=== PATIENT | female | born 1940 | race Caucasian/White ===

== ENCOUNTER 2016-11-20 13:58 | Outpatient (CLI) | payer MEDICARE | END 2016-11-20 14:16 | LOC: D.MAMMO 13:58 | DX: Z12.31 Encounter for screening mammogram for malignant neoplasm of breast (principal) ==

== ENCOUNTER → 2017-12-14 18:24 | Outpatient (CLI) | payer MEDICARE ==
[~2017-12-14 18:24] MED LIST: ATIVAN0.5 MG PO; LISINOPRIL10 MG PO; PLAVIX75 MG PO; VITAMIN D5000 UNIT PO
== END | disposition home or self-care (01) ==
LOC: D.LABREF 18:24
DX: N39.0 Urinary tract infection, site not specified (principal)

== ENCOUNTER → 2017-12-22 12:15 | Outpatient (CLI) | payer MEDICARE | END | disposition home or self-care (01) | LOC: D.LABREF 12:15 | DX: N39.0 Urinary tract infection, site not specified (principal) ==

== ENCOUNTER 2018-01-12 07:12 | Outpatient (CLI) | payer MEDICARE ==
[~2018-01-12] VITALS: Ht 165.1 cm; Wt 81.8 kg
--- NOTE | ~2018-01-12 | OP ---
PATIENT NAME: STANISLAV FLORES MEDICAL RECORD: [id number] :42 LOCATION:D.CAT ADMISSION DATE: SURGEON: MAXWELL BLACK MD DATE OF OPERATION: 01/12/2018 PROCEDURES: 1. PTCA stent LAD. 2. Left heart catheterization. 3. Selective coronary angiography. 4. Left ventriculogram. PROCEDURE IN DETAIL: After informed consent was obtained and after a detailed description of risks, benefits as well as alternative therapies, the patient elected to proceed with angiogram and angioplasty. The right radial area was prepped and draped in normal sterile fashion. Right radial artery was cannulated via modified Seldinger technique with placement of 6-Serbian sheath. All catheters exchanged through this sheath. FINDINGS: The left ventriculogram was performed in standard 30-degree PHILLIPS view, reveals good cardiac wall motion throughout all segments. Overall ejection fraction estimated 60%. SELECTIVE CORONARY ANGIOGRAPHY: 1. Left main is with no significant angiographic disease. 2. Left anterior descending has 80% stenosis in the mid distal vessel. 3. Left circumflex has moderate irregularities, but no flow-limiting stenosis. 4. Right coronary artery has moderate irregularities, but no flow-limiting stenosis. RECONCILING CLERK STENT OF THE LAD: The stent used was a 2.0 x 12 mm [place] taken to 15 atmospheres. Result was 0% residual stenosis. OVERALL IMPRESSION: Successful PTCA stent of the LAD going from 80% initial stenosis to 0% residual. TRANSINT:[id number] Voice Confirmation ID: [id number] DOCUMENT ID: [id number] MAXWELL BLACK MD at 1752 CC: [id number] DICTATION DATE: 01/12/18 1016 SLAB PULLER: 01/12/[address] [facility] CLI 01/12/18 [id number] [place] [address]
--- NOTE | ~2018-01-12 | HEMODYNAMI ---
PATIENT:STANISLAV FLORES MEDICAL RECORD: [id number] : 42 LOCATION:DKRZYS[facility]TOF ADMISSION DATE: 01/12/18 Generatedon:01/12/20189:51 Patient name: STANISLAV FLORES Patient #: [id number] SSN: : 1940 Date of study: 01/12/2018 Page: Of Hemodynamic Procedure Report Patient Data Patient Demographics Procedure consent was obtained First Name: STANISLAV Gender: Female Last Name: MARK : 1940 [facility] Initial: J Age: 77 year(s) Patient #: [id number] Race: Unknown Additional ID: [id number] Contact details [address]: [address] [place] [address] State: [place] City: [place] Zip code: [address] Past Medical History Allergies: No known allergies Admission Admission Data Admission Date: 01/12/2018 Admission Time: 7:12 Admit Source: Other Procedure Procedure Types Cath Procedure Diagnostic Procedure LHC LHC w/Coronaries PCI Procedure Coronary Stent Coronary Stent Initial Procedure Description Procedure Date Procedure Date: 01/12/2018 Procedure Start Time: 9:32 Procedure End Time: 9:49 Procedure Staff Name Function Lyle Juarez RT Monitor Sharron Bolanos RT Scrub Alec Alexandra RN Nurse Abdon Scanlon MD Performing Physician Procedure Data Cath Procedure Fluoroscopy Diagnostic fluoroscopy Total fluoroscopy Time: 5 time: 5 min min Diagnostic fluoroscopy Total fluoroscopy dose: 398 dose: 398 mGy mGy Contrast Material Contrast Material Type Amount (ml) Isovue 300 61 Entry Location Entry Primary Successful Side Size Upsize Upsize Entry Closure Lee ccessful Closure Location (Fr) 1 (Fr) 2 (Fr) Remarks Device Remarks Radial Right 6 Fr Mechanical artery Short Compression Estimated blood loss: 10 ml Diagnostic catheters Device Type Used For End Catheter Placement DIAGNOSTIC Monroe 110cm 5 Procedure Fr catheter ([id number]) Procedure Complications No complications Procedure Medications Medication Administration Route Dosage 0.9% NaCl I.V. 100 ml/hr Oxygen etCO2 Nasal cannula 2 l/min Heparin Flush Bag added to field 2 bags (1000units/500ml NS) Lidocaine 2% added to field 20 Radial Cocktail added to field 1 syringe (Verapomil 2mg/Nitro 400mcg/Heparin 1500units) Versed I.V. 1 mg Fentanyl I.V. 25 mcg Radial Cocktail I.A. 1 syringe (Verapomil 2mg/Nitro 400mcg/Heparin 1500units) Heparin Bolus I.V. 4000 units Integrilin (Bolus I.V. 7.3 ml 2mg/ml) Integrilin (Bolus wasted 2.7 ml 2mg/ml) Plavix P.O. 600 mg Hemodynamics Rest Heart Rate: 64 (bpm) Pressure Samples Time Site Value (mmHg) Purpose Heart Use Rate(bpm) 9:35 LV 58/14,16 Snapshot 70 Snapshots Pre Cath Intra NCS Post Cath Vital Signs Time Heart Resp SPO2 etCO2 NIBP (mmHg) Rhythm Pain Sedation Rate (ipm) (%) (mmHg) Status Level (bpm) 9:19:19 64 18 98 0 173/71(136) NSR 0 (11) 10(A) , No pain 9:24:20 63 19 100 35.2 179/76(125) NSR 0 (11) 10(A) , No pain 9:29:15 63 16 100 30.7 148/73(103) NSR 0 (11) 10(A) , No pain 9:34:03 72 20 98 38.2 134/62(100) NSR 0 (11) 9(A) , No pain 9:38:52 76 16 98 38.2 119/55(91) NSR 0 (11) 9(A) , No pain 9:43:39 79 20 98 35.9 127/59(106) NSR 0 (11) 10(A) , No pain 9:48:26 71 23 99 35.2 131/70(107) NSR 0 (11) 10(A) , No pain Medications Time Medication Route Dose Verified Delivered Reason Note s Effectiveness by by 9:24:10 0.9% NaCl I.V. 100 Alec Alec Per physician ml/hr Nasrin Alexandra RN RN 9:24:22 Oxygen etCO2 2 l/min Alec Alec Per physician Nasal Nasrin Alexandra cannula RN RN 9:25:11 Heparin Flush added 2 bags Alec Alec used for Bag to Lorigan Lorigan procedure (1000units/500ml field RN RN NS) 9:25:27 Lidocaine 2% added 20ml Alec Alec for local to vial Lorigan Nasrin anesthetic field RN RN 9:25:37 Radial Cocktail added 1 Alec Alec used for (Verapomil to syringe Lorflorencia Alexandra procedure 2mg/Nitro field RN RN 400mcg/Heparin 1500units) 9:31:28 Versed I.V. 1 mg Alec Alec for sedation Nasrin Alexandra RN RN 9:31:38 Fentanyl I.V. 25 mcg Alec Alec for sedation Nasrin Alexandra RN RN 9:34:26 Radial Cocktail I.A. 1 Alec Abdon for (Verapomil syringe Nasrin Tauth MD vasodilation 2mg/Nitro RN 400mcg/Heparin 1500units) 9:40:03 Heparin Bolus I.V. 4000 Alec Alec for units Nasrin Alexandra anticoagulation RN RN 9:40:19 Integrilin I.V. 7.3 ml Alec Alec for (Bolus 2mg/ml) Nasrin Alexandra antiplatelet RN RN therapy 9:40:31 Integrilin wasted 2.7 ml Alec Alec to sharp's (Bolus 2mg/ml) Nasrin Alexandra RN RN 9:45:05 Plavix P.O. 600 mg Alec Alec for Nasrin Alexandra antiplatelet RN RN therapy Procedure Log Time Note 9:09:06 Informed consent obtained and on chart 9:09:09 Admit Source: Other 9:09:59 Diagnostic Cath status Elective 9:10:01 Sharron Bolanos RT(R) sent for patient. Start room use. 9:10:01 Time tracking: Regular hours (M-F 7:00 - 5:00) 9:10:05 Plan of Care:Hemodynamics will remain stable., Cardiac rhythm will remain stable., Comfort level will be maintained., Respiratory function will remain adequate., Patient/ family verbilizes understanding of procedure., Procedure tolerated without complication., Recovers from procedure without complications.. 9:14:06 Patient received from Pre/Post Procedure Room to CCL 1 Alert and oriented. Tansferred to table in Supine position. 9:14:07 Warm blankets applied, and radha hugger turned on for patient comfort. 9:14:08 Correct patient and procedure confirmed by team. 9:14:08 ECG and BP/O2 sat monitors applied to patient. 9:14:10 Pre-procedure instructions explained to patient. 9:14:10 Pre-op teaching completed and patient verbalized understanding. 9:14:19 H&P Date Dictated: 12/15/2017 Within 30 days and on chart., H&P Addendum completed by physician on day of procedure. (MUST COMPLETE FOR ALL OUTPATIENTS). 9:18:06 Vital chart was started 9:24:10 0.9% NaCl 100 ml/hr I.V. was administered by Alec Alexandra RN; Per physician; 9:24:22 Oxygen 2 l/min etCO2 Nasal cannula was administered by Alec Alexandra RN; Per physician; 9:25:11 Heparin Flush Bag (1000units/500ml NS) 2 bags added to field was administered by Alec Alexandra RN; used for procedure; 9:25:27 Lidocaine 2% 20ml vial added to field was administered by Alec Alexandra RN; for local anesthetic; 9:25:37 Radial Cocktail (Verapomil 2mg/Nitro 400mcg/Heparin 1500units) 1 syringe added to field was administered by Alec Alexandra RN; used for procedure; 9:28:46 Zero performed for pressure channel P1 9:29:04 Baseline sample Acquired. 9:29:09 Rhythm: sinus rhythm 9:29:11 Full Disclosure recording started 9:29:16 Family in waiting room. 9:29:17 Patient NPO since Midnight. 9:29:23 Patient allergic to No known allergies 9:29:24 Is the patient allergic to Iodine/contrast media? No. 9:29:28 Is patient on blood thinner?No 9:29:30 Patient diabetic? No. 9:29:32 Previous problem with sedation/anesthesia? No ? 9:29:34 Snore? No 9:29:34 Sleep apnea? No 9:29:35 Deviated septum? No 9:29:36 Opens mouth fully? Yes 9:29:37 Sticks out tongue? Yes 9:29:38 Airway obstruction? No ? 9:29:40 Dentures? No ? 9:29:44 Modified Alexi's test Ulnar < 7 seconds 9:29:46 Patient pain scale 0/10 ?. 9:29:51 IV patent on arrival in left forearm with 0.9% NaCl at [facility]. 9:29:53 Lab results completed and on chart. 9:30:30 Right Radial & Right Groin area was prepped with chlora-prep and draped in sterile fashion 9:30:31 Alarms reviewed by RPooja N. 9:30:32 Sharps counted by scrub and verified by R.N. 9:30:42 Physician arrived 9:30:42 --------ALL STOP TIME OUT------ 9:30:43 Final Timeout: patient, procedure, and site verified with staff and physician. All members of the team are in agreement. 9:30:44 Right Radial & Right Groin site verified by team. 9:30:49 Physical assessment completed. ASA score P 2 - A patient with mild systemic disease as per Abdon Scanlon MD. 9:30:54 Sedation plan: IV Moderate Sedation Medication:Versed, Fentanyl 9:31:00 Use device set Radial Dx or PCI 9:31:01 ACIST Syringe (32261) opened to sterile field. 9:31:01 Medline Cath Pack ([id number]) opened to sterile field. 9:31:02 Bag Decanter (2002S) opened to sterile field. 9:31:02 ACIST Hand Control (99255) opened to sterile field. 9:31:03 ACIST Manifold (08027) opened to sterile field. 9:31:04 Tegaderm 4 x 4 (1626W) opened to sterile field. 9:31:04 MBrace Wrist Support ([id number]) opened to sterile field. 9:31:06 SHEATH 6Fr Prelude Radial ([id number]) opened to sterile field. 9:31:06 DIAGNOSTIC WIRE .035 260cm J wire (866808) opened to sterile field. 9:31:28 Versed 1 mg I.V. was administered by Alec Alexandra RN; for sedation; 9:31:38 Fentanyl 25 mcg I.V. was administered by Alec Alexandra RN; for sedation; 9:32:01 Zero performed for pressure channel P1 9:32:10 Procedure started. 9:32:17 Local anesthetic to right radial artery with Lidocaine 2% by Abdon Scanlon MD.INITIAL ACCESS ONLY 9:32:23 A 6 Fr Short sheath was inserted into the Right Radial artery 9:32:34 A DIAGNOSTIC Monroe 110cm 5 Fr catheter (711160) was advanced over the wire and used for Procedure. 9:34:25 GLIDE WIRE ANGLE 260cm (DC1981) opened to sterile field. 9:34:26 Radial Cocktail (Verapomil 2mg/Nitro 400mcg/Heparin 1500units) 1 syringe I.A. was administered by Abdon Scanlon MD; for vasodilation; 9:34:33 glide wire wire advanced. 9:35:42 Wire removed. 9:35:57 LV gram done using PHILLIPS 9:36:03 Injector settings: Ml/sec: 5, Volume: 15, 9:36:15 EF : 60 % 9:36:17 LV hemodynamics recorded. 9:36:25 LCA angiography performed. 9:36:36 INFLATOR Merit BasixCompak (UR4808) opened to sterile field. 9:36:54 CHOICE PT Extra Support 182cm wire ([id number]) opened to sterile field. 9:37:05 RCA angiography performed. 9:38:48 GUIDE 6FR XBLAD 3.5 catheter (12579991) opened to sterile field. 9:38:57 6 Fr xblad 3.5 guide catheter was inserted over the wire 9:39:37 choice pt es wire advanced. 9:40:00 Wire advanced across lesion. 9:40:03 Heparin Bolus 4000 units I.V. was administered by Alec Alexandra RN; for anticoagulation; 9:40:19 Integrilin (Bolus 2mg/ml) 7.3 ml I.V. was administered by Alec Alexandra RN; for antiplatelet therapy; 9:40:31 Integrilin (Bolus 2mg/ml) 2.7 ml wasted was administered by Alec Alexandra RN; to sharp's; 9:43:26 Place stent Inflation Number: 1 A LAMBERTO RX 2.0 x 12 stent ([id number]) was prepped and advanced across the Mid LAD. The stent was deployed at 15 YRN for 0:10 (min:sec). 9:44:35 Stent catheter was removed intact over wire. 9:44:37 Wire removed. 9:44:38 Guide catheter removed. 9:44:46 TR BAND Standard ([id number]) opened to sterile field. 9:45:02 Sheath removed intact; hemostasis achieved with Mechanical Compression to the Right Radial artery. 9:45:04 Procedure ended.(Physican Out) 9:45:05 Plavix 600 mg P.O. was administered by Alec Alexandra RN; for antiplatelet therapy; 9:46:54 Fluoroscopy time 05.00 minutes. 9:46:58 Fluoroscopy dose: 398 mGy 9:46:58 Flurop Dose total: 398 9:48:24 Contrast amount:Isovue 300 61ml. 9:48:25 Sharps counted by scrub and verified by R.N. 9:48:26 Insertion/operative site no bleeding no hematoma. 9:48:29 TR band inflated with 12cc of air. 9:48:34 Post right radial artery:stable, soft, clean and dry 9:48:36 Post Procedure Pulses reassessed and unchanged 9:48:39 Post-procedure physical assessment completed. ASA score P 2 - A patient with mild systemic disease as per Abdon Scanlon MD. 9:48:42 Post procedure rhythm: unchanged. 9:48:46 Estimated blood loss: 10 ml 9:48:47 Post procedure instruction explained to patient.Patient verbalizes understanding. 9:48:48 Patient needs reinforcement of post procedure teaching. 9:48:54 Procedure type changed to Cath procedure, Diagnostic procedure, LHC, LHC w/Coronaries, PCI procedure, Coronary Stent, Coronary Stent Initial 9:49:28 Procedure and supply charges have been captured, reviewed, submitted and are correct. 9:49:30 Procedure Complication : No complications 9:49:32 Vital chart was stopped 9:49:32 See physician's report for complete and final results. 9:49:34 Report given to Pre/Post Procedure Room. 9:49:36 Patient transfered to Pre/Post Procedure Room with Stretcher. 9:49:38 Procedure ended. 9:49:38 Full Disclosure recording stopped 9:49:41 End room use (Document Last) Intervention Summary Intervention Notes Time ActionType Lesion and Equipment Used Action# Pressure Duration Attributes 9:43:26 Place stent Mid LAD LAMBERTO RX 2.0 x 1 15 00:10 12 stent ([id number]) Device Usage Item Name Manufacture Quantity Catalog Number Hospital Part Current Minimal Lot# / Charge Number Stock Stock Serial# Code ACIST Syringe Acist 1 95864 [id number] 219412 217453 20 (76618) Medical Systems Inc Medline Cath Cardinal 1 [id number] 964601 46242 144735 5 Pack Health ([id number]) Bag Decanter Microtek 1 2001S 365458 24999 847270 5 (2001S) Medical Inc. ACIST Hand Acist 1 88737 669319 161574 160306 5 Control (06258) Medical Systems Inc ACIST Manifold Acist 1 17260 347232 678000 599285 5 (48161) Medical Systems Inc Tegaderm 4 x 4 3M 1 1626W 063047 675915 395717 5 (1626W) MBrace Wrist Advanced 1 140-0250-00 718720 68333 920019 5 Support Vascular ([id number]) Dynamics SHEATH 6Fr Merit 1 [id number] 919940 037991 760218 5 Prelude Radial Medical ([id number]) DIAGNOSTIC WIRE St Andres 1 663184 021960 362536 370644 30 .035 260cm J wire (606450) DIAGNOSTIC Terumo 1 40-8243 143524 707367 706344 5 Monroe 110cm 5 Fr catheter (244839) GLIDE WIRE Terumo 1 JD9815 907390 621966 241240 5 ANGLE 260cm (NS0424) INFLATOR Merit Merit 1 AO6610 221237 304708 526219 15 Envision PharmaceuticalAmerican F[facility] HospitalEvento [facility] (LC3512) CHOICE PT Extra [place] 1 [id number] 782891 831073 911211 5 Support 182cm Scientific wire ([id number]) GUIDE 6FR XBLAD Cardinal 1 [id number] 823719 893177 086190 10 3.5 catheter Health (32405164) LAMBERTO RX 2.0 x Medtronic 1 [id number] 050732 1338604 259573 5 [id number] 12 stent ([id number]) TR BAND Terumo 1 [id number] 050932 429687 100816 40 Standard ([id number]) Signature Audit [place] Stage Time Signature Unsigned Intra-Procedure 01/12/2018 Lyle Juarez 9:51:05 AM RT(R) Signatures Monitor : Lyle Juarez RT Signature : Date : Time : [address] [address] [place] [address]
[2018-01-12] MEDS ORDERED: LISINOPRIL10 MG PO (07:33)
[2018-01-12] MEDS ORDERED: VITAMIN D5000 UNIT PO (07:34)
[2018-01-12 07:49] VITALS: BP 140/51; Ht 165.1 cm; Wt 81.8 kg
[2018-01-12 08:02] LABS: BASOPHILS 0.3 % (0-2); EOSINOPHILS 1.5 % (0-7); HEMATOCRIT 40.8 % (36.0-48.0); HEMOGLOBIN 13.6 g/dL (12-16); IMMATURE GRANULOCYTES 0.1 % (0-5); LYMPHOCYTES 32.5 % (15-50); MCH 29.8 pg (26.0-34.0); MCHC 33.3 g/dL (31.0-37.0); MCV 89.3 fL (80.0-100.0); MEAN PLATELET VOLUME 9.9 fL (7.4-10.4); MONOCYTES 8.9 % (2-11); NEUTROPHILS 56.7 % (40-80); PLATELET COUNT 190 10x3/uL (130-400); RBC 4.57 10x6/uL (4.00-5.40); RDW 13.2 % (11.5-14.5); WBC 7.1 10x3/uL (4.8-10.8)
[2018-01-12 08:17] LABS: CALC OSMOLALITY 283 mosm/kg (275-300); CALCIUM 8.8 mg/dL (8.5-10.1); CARBON DIOXIDE 29.7 mmol/L (21.0-32.0); CHLORIDE - SERUM 106 mmol/L (98-107); CREATININE - SERUM 0.6 mg/dL (0.6-1.3); GLUCOSE 92 mg/dL (74-106); POTASSIUM - SERUM 4.5 mmol/L (3.5-5.1); SODIUM 142 mmol/L (136-145); UREA NITROGEN 15 mg/dL (7-18); eGFR NON AFRICAN AMERICAN > 90 mL/min (90-120)
[2018-01-12] MEDS ORDERED: PLAVIX75 MG PO (10:57)
== END 2018-01-12 14:10 | disposition home or self-care (01) ==
LOC: D.CATH 07:12
PROVIDERS: Internal Medicine Interventional Cardiology
DX: I25.119 Atherosclerotic heart disease of native coronary artery with unspecified angina pectoris (principal); Z01.812 Encounter for preprocedural laboratory examination
CPT/HCPCS: 93458; C9600

== ENCOUNTER 2018-01-16 19:47 | Emergency (ER) | payer MEDICARE ==
[~2018-01-16] VITALS: Ht 165.1 cm; Wt 81.8 kg
[~2018-01-16 19:47] MED LIST changes: -ATIVAN0.5 MG PO
[2018-01-16 19:51] VITALS: Ht 165.1 cm; Wt 81.8 kg
[2018-01-16 20:30] LABS: BASOPHILS 0.3 % (0-2); EOSINOPHILS 1.6 % (0-7); HEMATOCRIT 40.9 % (36.0-48.0); HEMOGLOBIN 13.6 g/dL (12-16); IMMATURE GRANULOCYTES 0.2 % (0-5); LYMPHOCYTES 42.3 % (15-50); MCH 29.8 pg (26.0-34.0); MCHC 33.3 g/dL (31.0-37.0); MCV 89.5 fL (80.0-100.0); MEAN PLATELET VOLUME 9.8 fL (7.4-10.4); MONOCYTES 8.2 % (2-11); NEUTROPHILS 47.4 % (40-80); PLATELET COUNT 207 10x3/uL (130-400); RBC 4.57 10x6/uL (4.00-5.40); RDW 13.1 % (11.5-14.5); WBC 9.8 10x3/uL (4.8-10.8)
[2018-01-16 20:45] LABS: ALBUMIN 3.9 g/dL (3.4-5.0); ALKALINE PHOSPHATASE 109 U/L (46-116); ALT (SGPT) 18 U/L (10-68); BILIRUBIN - TOTAL 0.36 mg/dL (0.2-1.3); CALC OSMOLALITY 283 mosm/kg (275-300); CALCIUM 8.6 mg/dL (8.5-10.1); CHLORIDE - SERUM 103 mmol/L (98-107); CREATININE - SERUM 0.8 mg/dL (0.6-1.3); GLUCOSE 102 mg/dL (74-106); POTASSIUM - SERUM 4.1 mmol/L (3.5-5.1); PROTEIN - SERUM 7.4 g/dL (6.4-8.2); SODIUM 141 mmol/L (136-145); UREA NITROGEN 21 mg/dL (7-18); eGFR NON AFRICAN AMERICAN 74 mL/min (90-120)
[2018-01-16 20:51] LABS: APTT 26.2 SECONDS (22.8-39.4); INR 0.95 (0.85-1.17); PROTIME 12.3 SECONDS (11.6-15.0)
[2018-01-16 21:01] LABS: CKMB 2.3 U/L (0.0-3.6); CREATINE KINASE 80 UL (21-215); PRO BNP 108 pg/mL (0-450)
[2018-01-16 21:03] LABS: TROPONIN-I 0.312 ng/mL (0.000-0.060)
[2018-01-16] MEDS ORDERED: ATIVAN0.5 MG PO (21:19)
[2018-01-17 01:37] VITALS: BP 132/85
== END 2018-01-16 22:25 | disposition home or self-care (01) ==
LOC: D.ER 19:47
PROVIDERS: Family Medicine
DX: Z95.5 Presence of coronary angioplasty implant and graft (principal); R07.9 Chest pain, unspecified; Z86.79 Personal history of other diseases of the circulatory system; I10 Essential (primary) hypertension; R00.0 Tachycardia, unspecified

== ENCOUNTER → 2018-01-24 19:09 | Outpatient (CLI) | payer MEDICARE ==
[~2018-01-24 19:09] MED LIST changes: +ATIVAN0.5 MG PO
== END | disposition home or self-care (01) ==
LOC: D.LABREF 19:09
DX: N39.0 Urinary tract infection, site not specified (principal)

== ENCOUNTER 2019-05-14 12:55 | Emergency (ER) | payer MEDICARE ==
[2019-05-14 13:03] VITALS: Ht 165.1 cm
[2019-05-14] MEDS ORDERED: LEVAQUIN750 MG PO (13:05)
[2019-05-14 15:10] LABS: BASOPHILS 0.2 % (0-2); EOSINOPHILS 0.4 % (0-7); HEMOGLOBIN 13.6 g/dL (12-16); IMMATURE GRANULOCYTES 0.3 % (0-5); LYMPHOCYTES 14.9 % (15-50); MCH 30.2 pg (26.0-34.0); MCHC 33.2 g/dL (31.0-37.0); MCV 90.9 fL (80.0-100.0); MEAN PLATELET VOLUME 10.2 fL (7.4-10.4); MONOCYTES 5.6 % (2-11); NEUTROPHILS 78.6 % (40-80); PLATELET COUNT 244 10x3/uL (130-400); RBC 4.51 10x6/uL (4.00-5.40); RDW 12.6 % (11.5-14.5); WBC 11.8 10x3/uL (4.8-10.8)
[2019-05-14 15:24] LABS: CALC OSMOLALITY 269 mosm/kg (275-300); CALCIUM 9.1 mg/dL (8.5-10.1); CARBON DIOXIDE 28.9 mmol/L (21.0-32.0); CHLORIDE - SERUM 100 mmol/L (98-107); CREATININE - SERUM 0.7 mg/dL (0.6-1.3); GLUCOSE 107 mg/dL (74-106); POTASSIUM - SERUM 4.5 mmol/L (3.5-5.1); SODIUM 134 mmol/L (136-145); UREA NITROGEN 17 mg/dL (7-18); eGFR NON AFRICAN AMERICAN 86 mL/min (90-120)
[2019-05-14 15:42] LABS: ALBUMIN 3.5 g/dL (3.4-5.0); ALKALINE PHOSPHATASE 99 U/L (46-116); ALT (SGPT) 17 U/L (10-68); AMYLASE - SERUM 34 U/L (25-115); BILIRUBIN - TOTAL 0.42 mg/dL (0.2-1.3); CKMB 1.2 U/L (0.0-3.6); CREATINE KINASE 74 UL (21-215); LIPASE 63 U/L (73-393); MAGNESIUM - SERUM 1.9 mg/dL (1.8-2.4); PROTEIN - SERUM 7.4 g/dL (6.4-8.2); TROPONIN-I < 0.017 ng/mL (0.000-0.060)
[2019-05-14 16:38] LABS: APPEARANCE CLEAR (CLEAR); BILIRUBIN NEGATIVE (NEGATIVE); COLOR STRAW (YELLOW); GLUCOSE NEGATIVE (NEGATIVE); KETONE SMALL mg/dL (NEGATIVE); NITRITE NEGATIVE (NEGATIVE); PROTEIN NEGATIVE (NEGATIVE); UROBILINOGEN NORMAL (NORMAL)
[2019-05-14 16:39] LABS: WHITE CELLS - URINE 0-5 /hpf (NEGATIVE)
[2019-05-14 16:40] LABS: BACTERIA FEW /hpf (NEGATIVE); EPITHELIAL CELLS 0-5 /hpf (0-5); RED CELLS - URINE RARE /hpf (0-5)
[2019-05-14] MEDS ORDERED: OMNICEF300 MG PO (16:55)
[2019-05-14] MEDS ORDERED: ZOFRAN ODT4 MG/UDTAB PO (16:55)
[2019-05-14 18:13] VITALS: BP 160/81
== END 2019-05-14 18:14 | disposition home or self-care (01) ==
LOC: D.ER 12:55
PROVIDERS: Family Medicine
DX: N39.0 Urinary tract infection, site not specified (principal); E86.0 Dehydration; R51 Headache; R11.2 Nausea with vomiting, unspecified

== ENCOUNTER → 2019-06-22 08:29 | Outpatient (CLI) | payer MEDICARE ==
--- NOTE | ~2019-06-22 | ST ---
PATIENT:STANISLAV FLORES MEDICAL RECORD: [id number] SEX: F LOCATION:[facility] ORDER #: ADMISSION DATE: 06/22/19 AGE OF PATIENT: 79 REFERRING PHYSICIAN: INTERPRETING PHYSICIAN: MAXWELL BLACK MD DATE OF SERVICE: 06/22/2019 Nuclear stress test. INDICATION: Angina, hypertension, and shortness of breath. She was exercised on standard Lexiscan protocol with 33 mCi of sestamibi injected at peak stress, 11 mCi used previously for rest images. FINDINGS: Gated SPECT reveals preserved ejection fraction at 69% with good wall motion and thickening and brightening throughout all segments. SPECT imaging Cardiolite was used as myocardial fusion agent. There is homogeneous uptake throughout all segments at rest and stress with no evidence of inducible ischemia or previous infarction. OVERALL IMPRESSION: 1. This is a normal nuclear stress test with no evidence of inducible ischemia or previous infarction. 2. Gated SPECT reveals a preserved ejection fraction at 69%. In this patient with ongoing symptomatology, the current scan does not suggest the presence of hemodynamically significant coronary artery disease. Evaluate noncardiac etiology of chest pain. TRANSINT:[id number] Voice Confirmation ID: [id number] DOCUMENT ID: [id number] MAXWELL BLACK MD CC: JEFRY KOCH [id number] DICTATION DATE: 06/22/19 1626 CHIEF AIRPORT GUIDE: 06/23/19 0039 DEP CLI 06/22/19 [facility] [address] [place] [address]
[~2019-06-22 08:29] MED LIST changes: +LEVAQUIN750 MG PO; +OMNICEF300 MG PO; +ZOFRAN ODT4 MG/UDTAB PO
== END | disposition home or self-care (01) ==
LOC: D.HCCARDIO 08:29
PROVIDERS: ATTEND Internal Medicine Interventional Cardiology
DX: I25.119 Atherosclerotic heart disease of native coronary artery with unspecified angina pectoris (principal)

== ENCOUNTER 2020-01-04 09:45 | Emergency (ER) | payer MEDICARE ==
[~2020-01-04] VITALS: Ht 165.1 cm; Wt 85.9 kg
[2020-01-04 09:46] VITALS: Ht 165.1 cm; Wt 85.9 kg
[2020-01-04] MEDS ORDERED: BAYER CHEWABLE81 MG PO (09:51)
[2020-01-04] MEDS ORDERED: HYDROCODON-ACE1 EAC7 PO (11:18)
[2020-01-04 11:45] VITALS: BP 152/75
== END 2020-01-04 11:45 | disposition home or self-care (01) ==
LOC: D.ER 09:45
DX: M79.651 Pain in right thigh (principal); I10 Essential (primary) hypertension; W01.0XXA Fall on same level from slipping, tripping and stumbling without subsequent striking against object, initial encounter; Y93.9 Activity, unspecified; Y92.9 Unspecified place or not applicable